=== PATIENT | female | born 1990 | race Caucasian/White ===

== ENCOUNTER 2019-06-16 21:34 | Emergency (ER) | payer OTHER, SELFPAY ==
[2019-06-16] MEDS ORDERED: FENTANYL CITR 100 MCG/2 ML ONE (21:52)
[2019-06-16] MEDS ORDERED: TETANUS & DIPHTHERIA TOX,ADULT 0.5 ML VIAL ONE (22:04)
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
[2019-06-16 22:35] LABS: Basophils % 0.4 % (0-1.3); Hematocrit 39.8 % (36.0-45.0); Lymphocytes % 31.4 % (15.3-44.8); MPV 8.7 fL (7.6-11.3); RBC Red Blood Cell Count 4.32 M/uL (3.86-4.86)
[2019-06-16] MEDS ORDERED: HYDROMORPHONE HCL 1 MG/ML INJ ONE (22:40)
[2019-06-16 23:00] LABS: Potassium 3.7 mmol/L (3.5-5.1)
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
== END 2019-06-17 01:23 | disposition short-term general hospital (02) ==
LOC: ER 21:34
PROC: 2W39X1Z Immobilization of Left Upper Extremity using Splint (ICD-10-PCS; principal; 2019-06-16)
DX: S42.352A Displaced comminuted fracture of shaft of humerus, left arm, initial encounter for closed fracture (principal); S60.511A Abrasion of right hand, initial encounter; V29.9XXA Motorcycle rider (driver) (passenger) injured in unspecified traffic accident, initial encounter
CPT/HCPCS: 36415; 70450; 71045; 72125; 80048; 85025; 90714; 96374; 96375; 99285; J1170; J3010

== ENCOUNTER 2019-06-19 06:31 | Emergency (ER) | payer SELFPAY ==
[2019-06-19] MEDS ORDERED: MORPHINE 4 MG/ML SYR ONE (06:42)
[2019-06-19] MEDS ORDERED: ONDANSETRON 4 MG/2 ML VIAL ONE (06:42)
[2019-06-19] MEDS ORDERED: NA CHLORIDE 0.9% 1,000 ML ONE ×2 (06:42→07:25)
[2019-06-19] MEDS ORDERED: FENTANYL CITR 100 MCG/2 ML ONE ×3 (06:47→07:25)
[2019-06-19] MEDS ORDERED: HYDROMORPHONE HCL 1 MG/ML INJ ONE (08:25)
[2019-06-19] MEDS ORDERED: NA CHLORIDE 0.9% 100 ML IV ONE (08:25)
--- NOTE | 2019-06-19 10:35 | RAD REPORT ---
EXAM DESCRIPTION: RAD - Humerus Left - 06/19/2019 10:22 am CLINICAL HISTORY: Left arm pain FINDINGS: Comminuted early subacute fracture involves the mid left humerus with moderate displacemen t of fracture fragments and angulation present at the fracture site. The angulation is less than on the June 16 examination.
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
== END 2019-06-19 12:05 | disposition home or self-care (01) ==
LOC: ER 06:31
PROC: 2W3DX1Z Immobilization of Left Lower Arm using Splint (ICD-10-PCS; principal; 2019-06-19)
DX: S42.352A Displaced comminuted fracture of shaft of humerus, left arm, initial encounter for closed fracture (principal); S44.22XA Injury of radial nerve at upper arm level, left arm, initial encounter; V29.9XXD Motorcycle rider (driver) (passenger) injured in unspecified traffic accident, subsequent encounter; Z72.0 Tobacco use
CPT/HCPCS: J1170; J2405; J3010; J7030